=== PATIENT | male | born 1980 | race Caucasian/White ===

== ENCOUNTER 2017-09-25 19:39 | Emergency (ER) | payer OTHER ==
[~2017-09-25] VITALS: Ht 180.3 cm; Wt 92.1 kg
[2017-09-25 19:55] VITALS: BP 163/85
[2017-09-25] MEDS ORDERED: DIPHTH,PERTUSS(ACELL),TET TOX 0.5 ML DISP.SYRIN. VAX IM ONE (20:15)
--- NOTE | 2017-09-25 20:19 | PHYS DOC ---
Past Medical History Past Medical History: No Pertinent History Past Surgical History: Other Additional Past Surgical Histo: nose; vasectomy Alcohol Use: Rarely Drug Use: None Adult General Chief Complaint Chief Complaint: LACERATION/AVULSION [facility] HPI Patient is a 37 year old male presents to the emergency room complaints of a laceration to the left wrist. Patient states he was washing dishes when a plate broke and the edge of the plate struck him on the wrist sustaining a laceration. Patient had hemostasis obtained prior to arrival. He has no loss of function. Review of Systems Review of Systems Constitutional: Denies fever or chills [] Eyes: Denies change in visual acuity, redness, or eye pain [] HENT: Denies nasal congestion or sore throat [] Respiratory: Denies cough or shortness of breath [] Cardiovascular: No additional information not addressed in HPI [] GI: Denies abdominal pain, nausea, vomiting, bloody stools or diarrhea [] : Denies dysuria or hematuria [] Musculoskeletal: Denies back pain or joint pain [] Integument:laceration Neurologic: Denies headache, focal weakness or sensory changes [] Endocrine: Denies polyuria or polydipsia [] Allergies Allergies Allergies Coded Allergies Type Severity Reaction Last Updated Verified cephalexin Allergy Intermediate 09/25/17 Yes Physical Exam Physical Exam Constitutional: Well developed, well nourished, no acute distress, non-toxic appearance. [] Cardiovascular:Heart rate regular rhythm, no murmur [] Lungs & Thorax: Bilateral breath sounds clear to auscultation [] Abdomen: Bowel sounds normal, soft, no tenderness, no masses, no pulsatile masses. [] Skin: Warm, dry, no erythema, no rash. [] Extremities: No tenderness, no cyanosis, no clubbing, ROM intact, no edema. Left wrist, lateral aspect with a 1.5 cm superficial flap laceration. Full range of motion of all digits without difficulty. Neurovascular intact distally. [] Neurologic: Alert and oriented X 3, normal motor function, normal sensory function, no focal deficits noted. [] Psychologic: Affect normal, judgement normal, mood normal. [] Current Patient Data Vital Signs Vital Signs Date Time Temp Pulse Resp B/P (MAP) Pulse Ox O2 Delivery O2 Flow Rate FiO2 09/25/17 19:55 98.3 78 18 163/85 (111) 97 Room Air 98.3 EKG EKG [] Radiology/Procedures Radiology/Procedures Procedure note: Left wrist laceration, cleansed with Betadine, wound edges approximated with Dermabond and Steri-Strip. Patient tolerated procedure well. Wound dressed with Band-Aid.[] Course & Med Decision Making Course & Med Decision Making Pertinent Labs and Imaging studies reviewed. (See chart for details) [] Dragon Disclaimer Dragon Disclaimer This electronic medical record was generated, in whole or in part, using a voice recognition dictation system. 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
== END 2017-09-25 20:30 | disposition home or self-care (01) ==
LOC: ER 19:39
DX: S61.512A Laceration without foreign body of left wrist, initial encounter (principal); Z88.1 Allergy status to other antibiotic agents; W22.8XXA Striking against or struck by other objects, initial encounter; Y93.G1 Activity, food preparation and clean up; Y99.8 Other external cause status; Y92.89 Other specified places as the place of occurrence of the external cause
CPT/HCPCS: 12001; 90471; 90715; 99283-25

== ENCOUNTER 2017-12-17 01:00 | Emergency (ER) | payer OTHER | END 2017-12-17 02:40 | disposition home or self-care (01) | LOC: ER 01:00 | DX: T78.40XA Allergy, unspecified, initial encounter (principal); J18.9 Pneumonia, unspecified organism; Z88.1 Allergy status to other antibiotic agents | CPT/HCPCS: 71046; 99284 ==

== ENCOUNTER 2018-01-28 23:55 | Emergency (ER) | payer OTHER ==
[2018-01-29] MEDS: IBUPROFEN 800 MG TABLET. PO (01:09)
== END 2018-01-29 01:16 | disposition home or self-care (01) ==
LOC: ER 23:55
DX: S80.01XA Contusion of right knee, initial encounter (principal); S70.311A Abrasion, right thigh, initial encounter; Z98.52 Vasectomy status; Z88.1 Allergy status to other antibiotic agents; W22.8XXA Striking against or struck by other objects, initial encounter; Y93.89 Activity, other specified; Y92.69 Other specified industrial and construction area as the place of occurrence of the external cause; Y99.8 Other external cause status
CPT/HCPCS: 73552; 73564; 99284

== ENCOUNTER → 2021-11-10 | Outpatient (CLI) | payer BC ==
[2018-01-29 00:20] VITALS: BP 168/90
[~2021-11-10] MED LIST: AZIT250T6 PO; BENZ100C PO
--- NOTE | 2021-11-10 16:11 | RAD ---
EXAMINATION: US DPLX VENOUS EXTREMITY LOWER RT (LOWER EXTREMITY VENOUS ULTRASOUND) CLINICAL HISTORY: Right lower extremity edema TECHNIQUE: Sonographic grayscale images obtained of the right lower extremity deep venous system with color flow Doppler, compression, and augmentation techniques as indicated. Images obtained and stor ed in a permanent archive. COMPARISON: None FINDINGS: No evidence of absent flow or incompressibility within the common femoral vein, femoral vein, or popl iteal vein. Visualized calf veins appear patent on limited evaluation. IMPRESSION: No evidence of right lower extremity DVT. Electronically signed by: Augustine Gonsales DO (11/10/2021 4:09 PM) [facility]
== END ==
LOC: US 15:45
PROVIDERS: ATTEND Family Medicine
DX: R60.0 Localized edema (principal)
CPT/HCPCS: 93971

== ENCOUNTER → 2022-03-05 | Outpatient (CLI) | payer BC ==
[2018-01-29 00:20] VITALS: BP 168/90
--- NOTE | 2022-03-05 15:08 | CARD ---
MR#: [id number] Date of Study: 03/05/2022 Ordering Physician: MARIE CONNELL, Referring Physician: MARIE CONNELL, Tech: Jill Jones [facility] APPROVED REPORT EXAM: Two-dimensional and M-mode echocardiogram with Doppler and color Doppler. Other Information Quality : GoodHR: 61bpm Rhythm : NSR INDICATION Dizziness and Vertigo RISK FACTORS Hypertension 2D DIMENSIONS RVDd3.2 (2.9-3.5cm)Left Atrium(2D)3.9 (1.6-4.0cm) IVSd1.1 (0.7-1.1cm)Aortic Root(2D)3.1 (2.0-3.7cm) LVDd5.1 (3.9-5.9cm)LVOT Diameter2.4 (1.8-2.4cm) PWd1.2 (0.7-1.1cm)LVDs3.4 (2.5-4.0cm) FS (%) 32.0 %SV73.0 ml LVEF(%)59.9 (>50%) Aortic Valve AoV Peak Jordan.104.7cm/sAoV VTI19.4cm AO Peak GR.4.4mmHgLVOT Peak Jordan.79.9cm/s AO Mean GR.2mmHgAVA (VMAX)3.43cm2 Mitral Valve MV E Gctzeaxz01.5cm/sMV DECEL [id number] MV A Sfownjbe80.9cm/sE/A Ratio1.3 Pulmonary Valve PV Peak Cbdcdliu602.7cm/s Tricuspid Valve TR P. Nolxegky622nx/sTR Peak Gr.17mmHg LEFT VENTRICLE The left ventricle is normal size. There is borderline concentric left ventricular hypertrophy. The l eft ventricular systolic function is normal. Estimated ejection fraction 60%. There is normal LV seg mental wall motion. The left ventricular diastolic function and filling is normal for age. RIGHT VENTRICLE The right ventricle is normal size. There is normal right ventricular wall thickness. The right ventr icular systolic function is normal. ATRIA The left atrium size is normal. The right atrium size is normal. The interatrial septum is intact wit h no evidence for an atrial septal defect or patent foramen ovale as noted on 2-D or Doppler imaging. AORTIC VALVE The aortic valve is normal in structure and function. Doppler and Color Flow revealed no significant aortic regurgitation. There is no significant aortic valvular stenosis. MITRAL VALVE The mitral valve is normal in structure and function. There is no evidence of mitral valve prolapse. There is no mitral valve stenosis. Doppler and Color Flow revealed no mitral valve regurgitation note d. TRICUSPID VALVE The tricuspid valve is normal in structure and function. Doppler and Color Flow revealed no tricuspid valve regurgitation noted. There is no tricuspid valve stenosis. PULMONIC VALVE The pulmonary valve is normal in structure and function. Doppler and Color Flow revealed trace pulmon ic valvular regurgitation. GREAT VESSELS The aortic root is normal in size. The ascending aorta is normal in size. The IVC is normal in size a nd collapses >50% with inspiration. PERICARDIAL EFFUSION There is no evidence of significant pericardial effusion. Critical Notification Critical Value: No <Conclusion> The left ventricular systolic function is normal. Estimated ejection fraction 60%. There is normal LV segmental wall motion. There is no evidence of significant pericardial effusion. Signed by : Feng Singh, Electronically Approved : 03/05/2022 15:07:55
== END ==
LOC: ECHO 10:35
PROVIDERS: ATTEND Internal Medicine Cardiovascular Disease
DX: R01.1 Cardiac murmur, unspecified (principal); R42 Dizziness and giddiness
CPT/HCPCS: 93306; C8929